=== PATIENT | female | born 1940 | race Caucasian/White ===

== ENCOUNTER → 2017-05-11 | Outpatient (CLI) | payer MEDICARE ==
[~2017-05-11] MED LIST: B12,B-12,B 12500 MC1 PO; BACTRIM DS 8001 TAB PO; CIPRO500 MG PO; CIPROFLOXACIN500 MG PO; DILANTIN100 MG PO; FLAGYL500 MG PO; KEFLEX500 M1 PO; LEVOTHYROXIN0.025 MG PO; LIDEX 0.05% CRE15 GM T; LOMOTIL 0.025 M1 TAB PO; LOPRESSOR25 MG PO; MACROBID100 M1 PO; MACRODANTIN100 MG PO; OSCAL ULTRA 6001 TA1 PO; OSTERA TABLET1 EACH PO; PREDNISONE20 M1 PO; PRESERVISION1 SGL PO; PRINIVIL5 M1 PO; PYRIDIUM200 MG PO; SYNTHROID0.025 MG PO; TOPROL XL25 MG PO; TRILIPIX45 M1 PO; VIBRAMYCIN100 MG PO; VITAMIN D32000 I1 PO; VITAMIN D3400 UNIT PO; ZESTRIL,PRINIVIL5 MG PO; ZOFRAN ODT4 MG SL; ZOVIRAX800 MG PO
== END | disposition home or self-care (01) ==
LOC: MAMMO 04-08 13:30
DX: C50.411 Malignant neoplasm of upper-outer quadrant of right female breast (principal)

== ENCOUNTER → 2017-06-01 | Day surgery (SDC) | payer MEDICARE ==
[2017-06-01 10:32] LABS: PROTHROMBIN TIME 10.4 SECONDS (9.0-12.4)
== END | disposition home or self-care (01) ==
LOC: SDC 05-21 11:00
PROVIDERS: Surgery
DX: D05.01 Lobular carcinoma in situ of right breast (principal)

== ENCOUNTER → 2017-09-16 | Outpatient (CLI) | payer MEDICARE | END | disposition home or self-care (01) | LOC: NM 10:00 | DX: C50.411 Malignant neoplasm of upper-outer quadrant of right female breast (principal) ==

== ENCOUNTER → 2017-09-17 | Outpatient (CLI) | payer MEDICARE ==
[2017-09-17 10:47] LABS: CREATININE 1.05 mg/dL (0.55-1.02)
== END | disposition home or self-care (01) ==
LOC: CT 09-04 09:00
PROVIDERS: Radiology Diagnostic Radiology
DX: C50.411 Malignant neoplasm of upper-outer quadrant of right female breast (principal); I10 Essential (primary) hypertension; K57.30 Diverticulosis of large intestine without perforation or abscess without bleeding; K44.9 Diaphragmatic hernia without obstruction or gangrene; K76.89 Other specified diseases of liver; Z90.49 Acquired absence of other specified parts of digestive tract; Z90.710 Acquired absence of both cervix and uterus; Z98.890 Other specified postprocedural states

== ENCOUNTER → 2017-10-30 | Outpatient (CLI) | payer MEDICARE ==
--- NOTE | ~2017-10-30 | EKG ---
[place], [place] ELECTROCARDIOGRAM REPORT NAME: DELPHINE PETTIT UNIT #: [id number] ROOM: DOCTOR: AUGUSTO ESTEBAN,KEYSHAWN BIRTHDATE: [birth year] DOS: 10/30/2017 TIME: 1137 hours. IMPRESSION: 1. Sinus rhythm. 2. Left anterior fascicular block. 3. Baseline artifact. 4. Normal QT interval. KEYSHAWN CASAS MD CM:EKGRPT:ELECTROCARDIOGRAM REPORT [id number] KEYSHAWN CASAS MD
[2017-10-30 11:43] LABS: BILIRUBIN NEGATIVE (NEGATIVE); BLOOD 3+ (NEGATIVE); CLARITY CLOUDY (CLEAR); COLOR YELLOW (YELLOW); GLUCOSE NEGATIVE (NEGATIVE); KETONE NEGATIVE (NEGATIVE); LEUKO ESTERASE 3+ (NEGATIVE); NITRITE NEGATIVE (NEGATIVE); PH 5.5 (5.0-9.0); SPECIFIC GRAVITY <= 1.005 (1.005-1.030); UROBILINOGEN 0.2 E.U./dl (0.2-1.0)
[2017-10-30 11:52] LABS: RBC TNTC rbc/hpf (0-2); WBC TNTC wbc/hpf (0-5)
[2017-10-30 12:03] LABS: BASO # 0.1 10*3/uL (0.0-0.1); BASO % 0.6 % (0.0-1.0); EOS # 0.1 10*3/uL (0.0-0.4); EOS % 1.5 % (1.0-4.0); HEMATOCRIT 35.3 % (37.0-47.0); HEMOGLOBIN 11.7 g/dl (12.0-16.0); LYMPH # 2.5 10*3/uL (1.3-4.4); LYMPH % 28.4 % (27.0-41.0); MEAN CELL VOLUME 89.6 fl (81.0-99.0); MEAN CORPUSCULAR HGB 29.7 pg (27.0-31.0); MEAN CORPUSCULAR HGB CONC 33.1 g/dl (33.0-37.0); MEAN PLATELET VOLUME 9.4 fl (9.6-12.3); MONO # 0.9 10*3/uL (0.1-1.0); MONO % 10.3 % (3.0-9.0); NEUT # 5.1 10*3/uL (2.3-7.9); NEUT % 58.9 % (47.0-73.0); PLATELET COUNT AUTOMATED 298 10*3/uL (130-400); RED BLOOD COUNT 3.94 10*6/uL (4.10-5.10); WHITE BLOOD COUNT 8.7 10*3/uL (4.8-10.8)
[2017-10-30 12:16] LABS: ALBUMIN 3.4 gm/dl (3.1-4.5); ALKALINE PHOSPHATASE 127 U/L (45-117); BILIRUBIN, DIRECT 0.1 mg/dL (0.0-0.2); BUN 23 mg/dl (7-24); CHLORIDE 107 mmol/L (98-107); POTASSIUM 4.1 mmol/L (3.5-5.1); SGOT/AST 15 IU/L (3-35); SGPT/ALT 18 U/L (12-78); SODIUM 141 mmol/L (136-145)
[2017-10-30 12:22] LABS: ACT PARTIAL THROMBO TIME 24.7 SECONDS (20.8-31.5)
[2017-10-30 12:25] LABS: PHENYTOIN (DILANTIN) 22.5 ug/ml (10-20)
== END ==
LOC: LAB 10:12
PROVIDERS: Surgery
DX: Z01.818 Encounter for other preprocedural examination (principal); C50.911 Malignant neoplasm of unspecified site of right female breast; R56.9 Unspecified convulsions; M79.609 Pain in unspecified limb

== ENCOUNTER → 2017-11-03 | Outpatient (CLI) | payer MEDICARE ==
[2017-11-03 14:45] LABS: BILIRUBIN NEGATIVE (NEGATIVE); BLOOD 3+ (NEGATIVE); CLARITY SL CLOUDY (CLEAR); COLOR YELLOW (YELLOW); GLUCOSE NEGATIVE (NEGATIVE); KETONE NEGATIVE (NEGATIVE); LEUKO ESTERASE 1+ (NEGATIVE); NITRITE NEGATIVE (NEGATIVE); PH 5.5 (5.0-9.0); UROBILINOGEN 0.2 E.U./dl (0.2-1.0)
[2017-11-03 15:06] LABS: BACTERIA TRACE; RBC 51-100 rbc/hpf (0-2)
[2017-11-03 15:07] LABS: WBC 31-40 wbc/hpf (0-5)
== END | disposition home or self-care (01) ==
LOC: LAB 14:18
PROVIDERS: Surgery
DX: N39.0 Urinary tract infection, site not specified (principal)

== ENCOUNTER → 2017-11-10 | Outpatient (CLI) | payer MEDICARE ==
[2017-11-10 14:21] LABS: BILIRUBIN NEGATIVE (NEGATIVE); BLOOD 3+ (NEGATIVE); CLARITY CLOUDY (CLEAR); COLOR YELLOW (YELLOW); GLUCOSE NEGATIVE (NEGATIVE); KETONE NEGATIVE (NEGATIVE); LEUKO ESTERASE 1+ (NEGATIVE); NITRITE NEGATIVE (NEGATIVE); UROBILINOGEN 0.2 E.U./dl (0.2-1.0)
[2017-11-10 14:35] LABS: BACTERIA 2+; EPITHELIAL CELLS 25-30; RBC TNTC rbc/hpf (0-2); WBC 31-40 wbc/hpf (0-5)
== END | disposition home or self-care (01) ==
LOC: LAB 13:49
PROVIDERS: Surgery
DX: N39.0 Urinary tract infection, site not specified (principal)

== ENCOUNTER 2017-11-12 01:28 | Inpatient (IN) | payer MEDICARE ==
[2017-10-30 10:28] VITALS: BP 137/67
[2017-11-07 12:15] VITALS: BP 137/91
[~2017-11-12] VITALS: Ht 162.5 cm; Wt 73.5 kg
[2017-11-12] VITALS (10 sets, daily range): BP systolic 112–156; BP diastolic 53–91
--- NOTE | ~2017-11-12 | O ---
[place], [place] OPERATIVE NOTE [facility]: [facility]IT [id number] UNIT #: [id number] ROOM: 4006 DOCTOR: EY RUSSO MD BIRTHDATE: [birth year] DOS: 11/12/2017 PREOPERATIVE DIAGNOSIS: Recurrent right breast cancer. POSTOPERATIVE DIAGNOSIS: Recurrent right breast cancer. PROCEDURE: Right modified radical mastectomy. SURGEON: Ye Russo MD SUPERVISOR OF GUIDANCE AND TESTING: ERLIN. ANESTHESIA: GET. INDICATIONS: This is a 77-year-old lady who has got a history of previous breast cancer on the right breast, comes in with a diagnosis of lobular carcinoma of the right breast and who is here for the above-mentioned procedure. The procedure and its complications were explained to the patient in detail preoperatively. Complications that were discussed included but were not limited to bleeding, infection, prolonged postoperative pain and damage lying vital structures. She agreed to proceed. DESCRIPTION OF PROCEDURE: After identifying the patient, the patient was brought to the operating suite and laid in the supine position. After induction of general anesthesia, a shoulder roll was placed under the right shoulder and the parts were then painted and draped in the usual sterile fashion. Timeout procedure was called. An incision in the form of an ellipse was marked encompassing the nipple areolar complex as well as the previous biopsy site on the right breast. The incision was made. The superior part of the ellipse was incised first and a flap was raised up to the right clavicle. The inferior part of the skin ellipse was then incised and the flap was raised up to the inframammary fold from the midline. The breast tissue was then removed from the underlying muscle and fascia with the help of electrocautery. The clavipectoral fascia was incised and the axillary contents were then accessed. With extreme care, the fibro-fatty areolar and lymphatic tissue was dissected away until adequate margins of the axillary dissection were obtained. This was confirmed by reaching the superior limit of the axillary dissection by identifying the axillary vein and the thoracodorsal vessels and nerve. Laterally, it was excised up to subscapularis muscle. After adequate dissection was performed, the breast and the axillary tissue was excised in one specimen and appropriately oriented and sent for histopathological diagnosis. Hemostasis was achieved with the help of electrocautery. Prior to removing the specimen, the long thoracic nerve of Perry was also identified and safeguarded. Copious amounts of saline was used for irrigation and hemostasis was achieved with the help of electrocautery and with suture ligature. After hemostasis was confirmed, two 15-[place] round Robert-Diaz drains were placed, one superiorly and one inferiorly and were fixed to the overlying skin with the help of 3-0 nylon in an interrupted fashion. The skin edges were freshened and trimmed so that there was adequate apposition of the edges of the wound. The subcutaneous tissue was then approximated with the help of 3-0 Vicryl in a running fashion and the skin [place], [place] OPERATIVE NOTE NAME: DELPHINE PETTIT UNIT #: [id number] ROOM: 4006 DOCTOR: YE RUSSO MD BIRTHDATE: [birth year] edges after infiltrating with 1% plain lidocaine were approximated with the help of 4-0 Vicryl in a subcuticular running fashion. A dressing was placed and a protective bra was placed on top of the dressing. The patient tolerated the procedure well and was extubated uneventfully and taken to the recovery room in a stable fashion. Blood loss was about [address] Ye Russo, the attending surgeon, was present throughout the operating case. There were no complications. Ye Russo MD CM:OPRECORD:OPERATIVE NOTE 1143 [id number] YE RUSSO MD 11/12/17 1307 interface
== END 2017-11-12 23:05 | disposition short-term general hospital (02) | DRG 582 ==
LOC: SDC 01:28 → 4NE 12:25 → ICCU 19:25
PROC: 0HTT0ZZ Resection of Right Breast, Open Approach (ICD-10-PCS; principal; 2017-11-12)
DX: C50.911 Malignant neoplasm of unspecified site of right female breast (principal); F05 Delirium due to known physiological condition; D64.9 Anemia, unspecified; K57.92 Diverticulitis of intestine, part unspecified, without perforation or abscess without bleeding; E03.9 Hypothyroidism, unspecified; L25.9 Unspecified contact dermatitis, unspecified cause; E78.5 Hyperlipidemia, unspecified; G40.909 Epilepsy, unspecified, not intractable, without status epilepticus; Z79.899 Other long term (current) drug therapy

== ENCOUNTER → 2018-07-22 | Outpatient (CLI) | payer MEDICARE | END | disposition home or self-care (01) | LOC: MAMMO 08:28 | DX: C50.911 Malignant neoplasm of unspecified site of right female breast (principal); Z90.11 Acquired absence of right breast and nipple ==

== ENCOUNTER → 2018-10-08 | Outpatient (CLI) | payer MEDICARE ==
[~2018-10-08] MED LIST changes: +LISINOPRIL10 M1 PO
[2018-10-08 11:27] LABS: BASO # 0.1 10*3/uL (0.0-0.1); BASO % 0.8 % (0.0-1.0); EOS # 0.4 10*3/uL (0.0-0.4); EOS % 3.4 % (1.0-4.0); HEMATOCRIT 41.1 % (37.0-47.0); HEMOGLOBIN 13.1 g/dl (12.0-16.0); LYMPH # 2.1 10*3/uL (1.3-4.4); LYMPH % 20.5 % (27.0-41.0); MEAN CELL VOLUME 89.7 fl (81.0-99.0); MEAN CORPUSCULAR HGB 28.6 pg (27.0-31.0); MEAN CORPUSCULAR HGB CONC 31.9 g/dl (33.0-37.0); MONO % 9.6 % (3.0-9.0); NEUT # 6.7 10*3/uL (2.3-7.9); NEUT % 65.4 % (47.0-73.0); PLATELET COUNT AUTOMATED 320 10*3/uL (130-400); RED BLOOD COUNT 4.58 10*6/uL (4.10-5.10); RED CELL DISTRI WIDTH 12.6 % (0-14.5); WHITE BLOOD COUNT 10.2 10*3/uL (4.8-10.8)
[2018-10-08 11:35] LABS: ACT PARTIAL THROMBO TIME 23.9 SECONDS (20.8-31.5)
[2018-10-08 11:53] LABS: BUN 15 mg/dl (7-24); CHLORIDE 109 mmol/L (98-107); CREATININE 1.02 mg/dL (0.55-1.02); POTASSIUM 3.7 mmol/L (3.5-5.1); SODIUM 143 mmol/L (136-145)
== END | disposition home or self-care (01) ==
LOC: LAB 10:21
PROVIDERS: Surgery
DX: R22.31 Localized swelling, mass and lump, right upper limb (principal)

== ENCOUNTER → 2018-10-20 | Outpatient (CLI) | payer MEDICARE ==
[2018-10-20 11:56] LABS: BASO # 0.1 10*3/uL (0.0-0.1); BASO % 0.8 % (0.0-1.0); EOS # 0.3 10*3/uL (0.0-0.4); EOS % 2.5 % (1.0-4.0); HEMOGLOBIN 13.2 g/dl (12.0-16.0); LYMPH # 2.4 10*3/uL (1.3-4.4); LYMPH % 23.2 % (27.0-41.0); MEAN CELL VOLUME 90.7 fl (81.0-99.0); MEAN CORPUSCULAR HGB 29.2 pg (27.0-31.0); MEAN CORPUSCULAR HGB CONC 32.2 g/dl (33.0-37.0); MEAN PLATELET VOLUME 9.7 fl (9.6-12.3); MONO % 9.7 % (3.0-9.0); NEUT # 6.5 10*3/uL (2.3-7.9); NEUT % 63.4 % (47.0-73.0); PLATELET COUNT AUTOMATED 319 10*3/uL (130-400); RED BLOOD COUNT 4.52 10*6/uL (4.10-5.10); RED CELL DISTRI WIDTH 12.8 % (0-14.5); WHITE BLOOD COUNT 10.3 10*3/uL (4.8-10.8)
[2018-10-20 12:30] LABS: BUN 20 mg/dl (7-24); CHLORIDE 107 mmol/L (98-107); CREATININE 1.03 mg/dL (0.55-1.02); POTASSIUM 3.9 mmol/L (3.5-5.1); SODIUM 139 mmol/L (136-145)
[2018-10-20 12:32] LABS: ACT PARTIAL THROMBO TIME 24.2 SECONDS (20.8-31.5)
== END ==
LOC: CANPRESDC → SDC 10-08 10:15 → LAB 08:00 → SDC 10-22 10:15 → EDSTATUS 10-22 10:15
PROVIDERS: Surgery
DX: R22.2 Localized swelling, mass and lump, trunk (principal); Z53.8 Procedure and treatment not carried out for other reasons

== ENCOUNTER → 2018-11-11 | Day surgery (SDC) | payer MEDICARE ==
[~2018-11-11] VITALS: Ht 167.6 cm; Wt 77.6 kg
== END | disposition home or self-care (01) ==
LOC: SDC 10-18 10:15
DX: R22.9 Localized swelling, mass and lump, unspecified (principal)

== ENCOUNTER 2019-12-20 13:41 | Inpatient (IN) | payer MEDICARE ==
[~2019-12-20] VITALS: Ht 167.6 cm; Wt 78.7 kg
[2019-12-20 13:54] VITALS: BP 148/67
[2019-12-20 14:17] VITALS: BP 126/58
[2019-12-20 15:01] LABS: BILIRUBIN NEGATIVE (NEGATIVE); BLOOD 3+ (NEGATIVE); CLARITY CLOUDY (CLEAR); COLOR YELLOW (YELLOW); GLUCOSE NEGATIVE (NEGATIVE); KETONE NEGATIVE (NEGATIVE); LEUKO ESTERASE 3+ (NEGATIVE); NITRITE NEGATIVE (NEGATIVE); SPECIFIC GRAVITY 1.015 (1.005-1.030); UROBILINOGEN 0.2 E.U./dl (0.2-1.0)
[2019-12-20 15:03] LABS: BACTERIA 4+; RBC 51-100 rbc/hpf (0-2); WBC 41-50 wbc/hpf (0-5)
[2019-12-20 15:30] LABS: HEMOGLOBIN 12.4 g/dl (12.0-16.0); MEAN CORPUSCULAR HGB CONC 32.6 g/dl (33.0-37.0); MEAN PLATELET VOLUME 9.2 fl (9.6-12.3); PLATELET COUNT AUTOMATED 265 10*3/uL (130-400); RED BLOOD COUNT 4.13 10*6/uL (4.10-5.10); RED CELL DISTRI WIDTH 12.6 % (0-14.5)
[2019-12-20 15:44] LABS: ALBUMIN 3.4 gm/dl (3.1-4.5); CREATININE 1.21 mg/dL (0.55-1.02); POTASSIUM 3.3 mmol/L (3.5-5.1); TOTAL PROTEIN 7.9 gm/dL (6.4-8.2)
[2019-12-20 16:00] VITALS: BP 113/57
[2019-12-20 16:02] LABS: BASOPHILS 1 % (0-1); TOTAL CELLS COUNTED 100 #CELLS
[2019-12-20 16:03] LABS: PLATELET SUFFICIENCY NORMAL (NORMAL)
[2019-12-20 18:05] VITALS: BP 108/57
--- NOTE | 2019-12-20 18:05 | NUR ---
Time: 1804 A 79 year old FEMALE admitted to 4E under services of DANG TERAN DO. Pt. arrived via stretcher from ER. Chief complaint: CONFUSION EARLIER TODAY. SHAYE LEAHY
[2019-12-20 18:15] VITALS: BP 108/57
[2019-12-20] MEDS ORDERED: VITAMIN D32000 UNI1 PO (18:40)
[2019-12-20] MEDS ORDERED: FENOFIBRATE160 MG PO (18:41)
[2019-12-20 20:00] VITALS: BP 113/57
--- NOTE | 2019-12-20 21:04 | NUR ---
NOTIFIED DR FABIAN OF COMPLETED MED REC. ORDERS RECIEVED TO CONTINUE DILANTIN.
[2019-12-21] VITALS: BP 152/71
--- NOTE | 2019-12-21 00:12 | NUR ---
TYLENOL GIVEN PER PATIENT REQUEST FOR TEMP OF 102.3. WILL ASSESS EFFECTIVENESS.
--- NOTE | 2019-12-21 01:30 | NUR ---
TYLENOL EFFECTIVE. PATIENTS TEMP NOW 99.9 F ORAL.
--- NOTE | 2019-12-21 04:11 | NUR ---
NOTIFIED DR FABIAN OF POSITIVE BLOOD CULTURE RESULTS. ORDERS RECIEVED TO REPEAT BLOOD CULTURES. ORDER PUT IN.
--- NOTE | 2019-12-21 06:17 | NUR ---
PATIENT SLEPT THROUGH NIGHT WITH NO COMPLAINTS. CALL LIGHT WITHIN REACH. WILL CONTINUE TO MONITOR.
[2019-12-21 07:06] LABS: BASO % 0.2 % (0.0-1.0); EOS % 0.2 % (1.0-4.0); HEMATOCRIT 35.6 % (37.0-47.0); HEMOGLOBIN 11.3 g/dl (12.0-16.0); LYMPH # 0.7 10*3/uL (1.3-4.4); LYMPH % 5.5 % (27.0-41.0); MEAN CELL VOLUME 92.7 fl (81.0-99.0); MEAN CORPUSCULAR HGB 29.4 pg (27.0-31.0); MEAN CORPUSCULAR HGB CONC 31.7 g/dl (33.0-37.0); MONO # 0.8 10*3/uL (0.1-1.0); MONO % 6.8 % (3.0-9.0); NEUT # 10.5 10*3/uL (2.3-7.9); NEUT % 86.6 % (47.0-73.0); PLATELET COUNT AUTOMATED 261 10*3/uL (130-400); RED BLOOD COUNT 3.84 10*6/uL (4.10-5.10); RED CELL DISTRI WIDTH 12.9 % (0-14.5); WHITE BLOOD COUNT 12.1 10*3/uL (4.8-10.8)
[2019-12-21 07:26] LABS: POTASSIUM 3.4 mmol/L (3.5-5.1)
[2019-12-21 07:45] LABS: ALBUMIN 2.7 gm/dl (3.1-4.5); CREATININE 1.24 mg/dL (0.55-1.02); FREE T4 1.44 ng/dl (0.76-1.46); PHOSPHOROUS 2.4 mg/dL (2.5-4.9); THYROID STIM HORMONE (HS) 0.038 uIU/ml (0.358-4.75); TOTAL PROTEIN 6.7 gm/dL (6.4-8.2)
[2019-12-21 08:00] VITALS: BP 150/68
--- NOTE | 2019-12-21 08:34 | NUR ---
PT RESTING IN BED/ NO DISTRESS NOTED. WILL MONITOR
[2019-12-21 08:57] LABS: VITAMIN D, 25-HYDROXY 22.7 ng/mL (30-100)
--- NOTE | 2019-12-21 09:00 | NUR ---
Belt Back Operator in to talk to patient. Patient states lives at home with alone. There are 13 steps in the home. Physician: promise jaimes [facility]: none Patient's level of ADLs: MINIMAL ASSIST Patient has working utilities: all working DME: non Follow-up physician's appointment after d/c: will be made by hospitalist nurse director upon discharge Does patient want to access PORTAL?: no Discharge plan discussed with patient, she states she lives at home alone, she normally gets around ok at home, she states she does not have any VNA at home and her daughter lives close and helps her on a daily basis. discussed with her a [facility] term [place] [facility] prior to returning home, patient didn't know if she wanted to do this or not, also educated her on VNA, she stated she would rather go home with [facility] if she is able, case management will follow. JULIO NORTON
--- NOTE | 2019-12-21 11:30 | NUR ---
PHYSICAL THERAPY Roro completed moderate level of complexity 58194 recomend SNF at discharge PT to work on tranfers,amb,balance/safety and strengthening. Anny Israel PT
[2019-12-21 12:00] VITALS: BP 142/60
--- NOTE | 2019-12-21 12:59 | NUR ---
Occupational therapy orders received and OT evaluation completed in full on floor four. Patient precautions include FALL RISK, H/O RIGHT BREAST CA S/P LUMPECTOMY, WW, IV, CATHETER, decreased standing balance. Per OT evimani, OT recommends SNF. If refused, home with SN, OT, and PT with / supervision assist. [place] complexity [place] mod, 56070. Thank you. Bruna Vargas, OTR/L
[2019-12-21 16:00] VITALS: BP 136/68
--- NOTE | 2019-12-21 17:32 | NUR ---
HAYES CATHETER REMOVED ORDERED
--- NOTE | 2019-12-21 17:38 | NUR ---
PT SITTING UP IN CHAIR. NO DISTRESS NOTED. FAMILY AT BEDSIDE WILL MONITOR
[2019-12-21 20:00] VITALS: BP 120/51
[2019-12-22] VITALS: BP 135/68
--- NOTE | 2019-12-22 01:03 | NUR ---
Patient resting quietly with no c/o discomfort. Respirations easy and regular. Vital signs stable. No overt distress. BIPIN KEN
[2019-12-22 06:45] LABS: HEMOGLOBIN 10.3 g/dl (12.0-16.0); MEAN CELL VOLUME 92.8 fl (81.0-99.0); MEAN CORPUSCULAR HGB 29.9 pg (27.0-31.0); MEAN CORPUSCULAR HGB CONC 32.2 g/dl (33.0-37.0); MEAN PLATELET VOLUME 9.7 fl (9.6-12.3); PLATELET COUNT AUTOMATED 205 10*3/uL (130-400); RED BLOOD COUNT 3.45 10*6/uL (4.10-5.10); WHITE BLOOD COUNT 6.6 10*3/uL (4.8-10.8)
[2019-12-22 07:00] LABS: BUN 17 mg/dl (7-24); CHLORIDE 115 mmol/L (98-107); PHOSPHOROUS 1.8 mg/dL (2.5-4.9); POTASSIUM 3.7 mmol/L (3.5-5.1); SODIUM 142 mmol/L (136-145)
[2019-12-22 07:08] LABS: PLATELET SUFFICIENCY NORMAL (NORMAL); TOTAL CELLS COUNTED 100 #CELLS
[2019-12-22 08:00] VITALS: BP 148/69
--- NOTE | 2019-12-22 08:42 | NUR ---
PT RESTING IN BED. NO DISTRESS NOTED. WILL MONITOR
--- NOTE | 2019-12-22 08:50 | NUR ---
PHYSICAL THERAPY Patient seen this am 1:1 for therapy visit and was supine in bed upon therapist arrival. Paient identified by name / and was very pleasant, reporting no new c/o's. OT retail assistant was also present for observation only this session as patient transfers supine to sit EOB CGA x 1. Patient completed sit to stand transfer CGA and ambulates without AD, FIELD MAP TECHNICIAN/CGA, 50'x 2, demonstrating bouts of impulsive, unsteady gait pattern due to increased gait velocity / forward head posture. Patient received v/c to slow down with increased upright posture and showed slight improvement in smoother gayatri. Patient able to walk backwards 5'x 1, very cautious step sequence and completed eyes open / closed with LOB x 1 x several trials. Patient returned to bedside chair with mild fatigue and remained with call light, tray table, telephone and body alarm for safety. Will continue per POC as tolerated, total treatment time 17 minutes. Juan Kerr, RESPIRATORY CARE TECHNICIAN
--- NOTE | 2019-12-22 09:00 | NUR ---
case management visits with patient, patient was ambulating in [place] with physical therapy, discussed with her a discharge plan and she stated she would return home when she was medically stable, again discussed with her VNA and she was receptive to [facility]
--- NOTE | 2019-12-22 09:25 | NUR ---
OT NOTE Pt was seen this A.M. 1:1 for 15 minute OT session. Upon arrival pt was supine in bed. Pt identified by name and and had no complaints at this time. Pt transferred supine to sit EOB with CGA and use of bed rail for UE support. While sitting EOB pt donned B socks with SBA. Sit to stand completed from bed level with CGA followed by functional mobility into the bathroom with CGA COMPLEX DIRECTOR. Throughout pt had bouts of unsteady stance and required constant verbal prompts for slowing down due to being impulsive and increasing risk of falls. There she transferred on/off standard commode with CGA and use of grab bar for UE support. Clothing management completed with CGA and toilet hygiene completed with distant supervision while seated. Pt then stood sink side while washing her hands with CGA for safety. Challenged pt's static standing tolerance needed for increased I in self care tasks and functional transfers, pt was able to tolerate aprox 5 minutes before sitting due to fatigue. Challenged pt's dynamic standing balance needed for increased I and enhanced safety, while weight shifting, crossing midline, and reaching over all planes pt was able to maintain F- standing balance throghout. Pt was left sitting upright in the recliner with call light in hand, tray table in place, and body alarm activated for safety. Continue with rec D/C plan to SNF. MARY JANE Sampson
[2019-12-22 12:00] VITALS: BP 122/74
--- NOTE | 2019-12-22 13:30 | NUR ---
case management faxed home health order to [facility] for when patient is medically stable for discharge
[2019-12-22 16:00] VITALS: BP 117/60
--- NOTE | 2019-12-22 19:06 | NUR ---
family with patient. patient alert sitting up in bed visiting. Did not eat any dinner per family.
[2019-12-22 20:00] VITALS: BP 152/73
--- NOTE | 2019-12-22 21:44 | NUR ---
UP TO BATHROOM WITH ASSISTANCE AND BACK TO BED.
[2019-12-23] VITALS: BP 147/69
--- NOTE | 2019-12-23 01:19 | NUR ---
24 HR chart check completed.
--- NOTE | 2019-12-23 04:09 | NUR ---
UP TO BATHROOM WITH 1 ASSIST AND BACK TO BED. VOIDED ONLY.
[2019-12-23 06:32] LABS: BASO % 0.5 % (0.0-1.0); EOS # 0.1 10*3/uL (0.0-0.4); EOS % 2.2 % (1.0-4.0); HEMOGLOBIN 10.6 g/dl (12.0-16.0); LYMPH # 1.6 10*3/uL (1.3-4.4); LYMPH % 24.4 % (27.0-41.0); MEAN CELL VOLUME 91.7 fl (81.0-99.0); MEAN CORPUSCULAR HGB 29.4 pg (27.0-31.0); MEAN CORPUSCULAR HGB CONC 32.1 g/dl (33.0-37.0); MEAN PLATELET VOLUME 9.9 fl (9.6-12.3); MONO # 1.1 10*3/uL (0.1-1.0); MONO % 16.5 % (3.0-9.0); NEUT # 3.6 10*3/uL (2.3-7.9); NEUT % 55.9 % (47.0-73.0); PLATELET COUNT AUTOMATED 230 10*3/uL (130-400); RED CELL DISTRI WIDTH 12.7 % (0-14.5); WHITE BLOOD COUNT 6.4 10*3/uL (4.8-10.8)
--- NOTE | 2019-12-23 06:56 | NUR ---
up to bathroom with assistance x1 and voided and back to bed. Patient has been up to bathroom to void 10 times for 12hr shift. pt. did well moving.
[2019-12-23 07:24] LABS: CHLORIDE 112 mmol/L (98-107); POTASSIUM 3.6 mmol/L (3.5-5.1); SODIUM 141 mmol/L (136-145)
[2019-12-23 07:27] LABS: BUN 19 mg/dl (7-24); CREATININE 1.01 mg/dL (0.55-1.02)
--- NOTE | 2019-12-23 07:41 | NUR ---
PHYSICAL THERAPY CO-SIGN I approve of the Physical Therapy notes written above. Anny Israel PT
[2019-12-23 08:00] VITALS: BP 132/74
--- NOTE | 2019-12-23 09:58 | NUR ---
OT NOTE Pt was seen this A.M. 1:1 for 15 minute OT session. Upon arrival pt was sitting upright in the recliner. Pt identified by name and and had no complaints at this time. Pt completed sit to stand from chair level with CGA followed by functional mobility into the bathroom with CGA WELLNESS COACH, pt had two LOB throughout once while turning and once due to impulsive behavior requiring Dinorah to correct. Pt transferred on/off standard commode with CGA and use of grab bar for UE support. Clothing management completed with CGA and toilet hygiene conpleted with distant supervision while seated. Pt then stood sink side while washing her hands with CGA. Challenged pt's dynamic standing balance while weight shifting, crossing midline, and reaching over all planes. Pt was able to maintain F/F+ standing balance throughout. Pt was left sitting upright in the recliner with call light in hand, tray table in place, and body alarm activated for safety. Continue with rec D/C plan to SNF. MARY JANE Sampson
[2019-12-23] MEDS ORDERED: AMINOPHYLLIN200 MG PO (09:59)
[2019-12-23 12:00] VITALS: BP 126/63
--- NOTE | 2019-12-23 15:17 | NUR ---
Discharge instructions reviewed with patient/family. Patient receptive and verbalizes understanding. Follow-up care arranged. Written instructions given to patient/family. RODRIGO CHANG
--- NOTE | 2019-12-23 15:46 | NUR ---
OCCUPATIONAL THERAPY CO-SIGN I approve of the Occupational Therapy notes written above. FELIPE DANIELS OTR/Tashia
== END 2019-12-23 15:17 | disposition home health service (06) | DRG 871 ==
LOC: ED 13:41 → 4E 16:50 → EDHOLD 16:50 → 4E 17:48
PROVIDERS: Emergency Medicine; Internal Medicine; ADMIT Internal Medicine
DX: A41.9 Sepsis, unspecified organism (principal); J18.9 Pneumonia, unspecified organism; N39.0 Urinary tract infection, site not specified; E87.8 Other disorders of electrolyte and fluid balance, not elsewhere classified; N18.3 Chronic kidney disease, stage 3 (moderate); E87.6 Hypokalemia; R73.9 Hyperglycemia, unspecified; G40.909 Epilepsy, unspecified, not intractable, without status epilepticus; E03.9 Hypothyroidism, unspecified; E53.8 Deficiency of other specified B group vitamins; E55.9 Vitamin D deficiency, unspecified; B96.20 Unspecified Escherichia coli [E. coli] as the cause of diseases classified elsewhere; E78.5 Hyperlipidemia, unspecified; Z85.3 Personal history of malignant neoplasm of breast; Z87.440 Personal history of urinary (tract) infections; Z90.710 Acquired absence of both cervix and uterus; Z90.49 Acquired absence of other specified parts of digestive tract; Z90.11 Acquired absence of right breast and nipple; Z80.8 Family history of malignant neoplasm of other organs or systems; Z79.899 Other long term (current) drug therapy

== ENCOUNTER 2020-06-17 22:34 | Emergency (ER) | payer MEDICARE, MEDICAID ==
[~2020-06-17] VITALS: Ht 170.1 cm; Wt 78.0 kg
[~2020-06-17 22:34] MED LIST changes: +AMINOPHYLLIN200 MG PO; +FENOFIBRATE160 MG PO; +VITAMIN D32000 UNI1 PO
[2020-06-18 00:11] LABS: BASO # 0.1 10*3/uL (0.0-0.1); BASO % 0.6 % (0.0-1.0); EOS # 0.5 10*3/uL (0.0-0.4); EOS % 4.4 % (1.0-4.0); HEMATOCRIT 39.7 % (37.0-47.0); LYMPH # 2.9 10*3/uL (1.3-4.4); LYMPH % 25.4 % (27.0-41.0); MEAN CELL VOLUME 93.6 fl (81.0-99.0); MEAN CORPUSCULAR HGB 29.5 pg (27.0-31.0); MEAN CORPUSCULAR HGB CONC 31.5 g/dl (33.0-37.0); MEAN PLATELET VOLUME 9.3 fl (9.6-12.3); MONO # 1.1 10*3/uL (0.1-1.0); MONO % 9.7 % (3.0-9.0); NEUT # 6.8 10*3/uL (2.3-7.9); NEUT % 59.2 % (47.0-73.0); PLATELET COUNT AUTOMATED 358 10*3/uL (130-400); RED BLOOD COUNT 4.24 10*6/uL (4.10-5.10); RED CELL DISTRI WIDTH 12.6 % (0-14.5); WHITE BLOOD COUNT 11.5 10*3/uL (4.8-10.8)
[2020-06-18 00:28] LABS: ALBUMIN 3.5 gm/dl (3.1-4.5); CREATININE 1.25 mg/dL (0.55-1.02); POTASSIUM 3.8 mmol/L (3.5-5.1); TOTAL PROTEIN 8.5 gm/dL (6.4-8.2)
[2020-06-18 01:13] VITALS: BP 154/72
[2020-06-18] MEDS ORDERED: DOXYCYCLINE100 M3 PO (01:17)
== END 2020-06-18 01:30 | disposition home or self-care (01) ==
LOC: ED 22:34
PROVIDERS: Nurse Practitioner Family
DX: L02.411 Cutaneous abscess of right axilla (principal); Z79.899 Other long term (current) drug therapy

== ENCOUNTER → 2020-09-10 | Outpatient (CLI) | payer MEDICARE ==
[~2020-09-10] MED LIST changes: +AVPAK EXTENDED100 M1 PO; +CEFTRIAXON2 GM/50 ML IV; +DOXYCYCLINE100 M3 PO
[2020-09-10 14:17] LABS: BASO # 0.1 10*3/uL (0.0-0.1); BASO % 0.5 % (0.0-1.0); EOS # 0.4 10*3/uL (0.0-0.4); EOS % 3.2 % (1.0-4.0); HEMATOCRIT 37.5 % (37.0-47.0); LYMPH # 3.7 10*3/uL (1.3-4.4); LYMPH % 28.6 % (27.0-41.0); MEAN CELL VOLUME 89.5 fl (81.0-99.0); MEAN CORPUSCULAR HGB 29.1 pg (27.0-31.0); MEAN CORPUSCULAR HGB CONC 32.5 g/dl (33.0-37.0); MEAN PLATELET VOLUME 9.7 fl (9.6-12.3); MONO # 1.1 10*3/uL (0.1-1.0); MONO % 8.4 % (3.0-9.0); NEUT # 7.7 10*3/uL (2.3-7.9); PLATELET COUNT AUTOMATED 358 10*3/uL (130-400); RED BLOOD COUNT 4.19 10*6/uL (4.10-5.10); RED CELL DISTRI WIDTH 12.7 % (0-14.5); WHITE BLOOD COUNT 13.1 10*3/uL (4.8-10.8)
[2020-09-10 14:47] LABS: ALBUMIN 3.4 gm/dl (3.1-4.5); ALKALINE PHOSPHATASE 131 U/L (45-117); BUN 13 mg/dl (7-24); CHLORIDE 109 mmol/L (98-107); CREATININE 0.89 mg/dL (0.55-1.02); POTASSIUM 3.8 mmol/L (3.5-5.1); SGOT/AST 19 IU/L (3-35); SGPT/ALT 16 U/L (12-78); SODIUM 143 mmol/L (136-145); TOTAL PROTEIN 8.5 gm/dL (6.4-8.2)
[2020-09-10 19:19] LABS: BILIRUBIN Negative (Negative); BLOOD 1+ (Negative); CLARITY Clear (Clear); COLOR Yellow (Yellow); GLUCOSE Negative (Negative); KETONE Negative (Negative); LEUKO ESTERASE 2+ (Negative); NITRITE Negative (Negative); PH 6.5 (4.5-8.0); SPECIFIC GRAVITY <= 1.005 (1.001-1.030); UROBILINOGEN 0.2 E.U./dl (0.0-1.0)
[2020-09-10 20:55] LABS: BACTERIA TRACE
== END | disposition home or self-care (01) ==
LOC: LAB 13:52 → CT 14:00
PROVIDERS: ATTEND Urology
DX: R31.9 Hematuria, unspecified (principal)

== ENCOUNTER → 2020-12-01 | Outpatient (CLI) | payer MEDICARE ==
[~2020-12-01] MED LIST changes: +PERCOCET 5-3251 EACH PO; +ZOFRAN4 MG PO
== END | disposition home or self-care (01) ==
LOC: COVID19 10:13
PROVIDERS: ATTEND Nurse Practitioner
DX: Z20.822 Contact with and (suspected) exposure to COVID-19 (principal)

== ENCOUNTER → 2020-12-06 | Day surgery (SDC) | payer MEDICARE ==
[~2020-12-06] VITALS: Ht 162.5 cm; Wt 73.0 kg
[2020-12-06 07:42] VITALS: BP 130/66
[2020-12-06 08:55] VITALS: BP 117/50
[2020-12-06 09:10] VITALS: BP 119/53
[2020-12-06 09:25] VITALS: BP 136/64
== END ==
LOC: SDC 11-27 08:00
PROVIDERS: ATTEND Surgery
DX: L02.91 Cutaneous abscess, unspecified (principal); C79.2 Secondary malignant neoplasm of skin; I12.9 Hypertensive chronic kidney disease with stage 1 through stage 4 chronic kidney disease, or unspecified chronic kidney disease; G40.909 Epilepsy, unspecified, not intractable, without status epilepticus; E11.22 Type 2 diabetes mellitus with diabetic chronic kidney disease; N18.30 Chronic kidney disease, stage 3 unspecified; E78.00 Pure hypercholesterolemia, unspecified; Z79.899 Other long term (current) drug therapy; Z85.3 Personal history of malignant neoplasm of breast; Z90.11 Acquired absence of right breast and nipple; Z90.710 Acquired absence of both cervix and uterus; Z98.890 Other specified postprocedural states

== ENCOUNTER → 2021-01-22 | Outpatient (CLI) | payer MEDICARE, MEDICAID ==
[2021-01-23 08:08] LABS: THYROID PEROXIDASE (TPO) AB 88 IU/mL (0-34)
[2021-01-23 15:07] LABS: THYROGLOBULIN ANTIBODY <1.0 IU/mL (0.0-0.9)
== END | disposition home or self-care (01) ==
LOC: CT 01-14 15:00 → LAB 13:43 → CT 14:00
PROVIDERS: Student in an Organized Health Care Education/Training Program; ATTEND Internal Medicine Hematology & Oncology
DX: E04.1 Nontoxic single thyroid nodule (principal); R22.9 Localized swelling, mass and lump, unspecified; R79.89 Other specified abnormal findings of blood chemistry; I25.10 Atherosclerotic heart disease of native coronary artery without angina pectoris; K57.90 Diverticulosis of intestine, part unspecified, without perforation or abscess without bleeding; C50.911 Malignant neoplasm of unspecified site of right female breast; Z90.49 Acquired absence of other specified parts of digestive tract

== ENCOUNTER → 2021-05-15 | Outpatient (CLI) | payer MEDICARE, MEDICAID | END | disposition home or self-care (01) | LOC: US 05-09 16:00 | PROVIDERS: ATTEND Nurse Practitioner Primary Care | DX: E04.2 Nontoxic multinodular goiter (principal); R79.89 Other specified abnormal findings of blood chemistry ==

== ENCOUNTER → 2021-05-24 | Outpatient (CLI) | payer MEDICARE, MEDICAID | END | disposition home or self-care (01) | LOC: CT 16:34 | PROVIDERS: ATTEND Internal Medicine Hematology & Oncology | DX: E04.2 Nontoxic multinodular goiter (principal); D35.02 Benign neoplasm of left adrenal gland; I25.10 Atherosclerotic heart disease of native coronary artery without angina pectoris; C50.911 Malignant neoplasm of unspecified site of right female breast; Z90.11 Acquired absence of right breast and nipple ==

== ENCOUNTER 2021-12-11 02:06 | Emergency (ER) | payer MEDICARE, MEDICAID ==
[~2021-12-11] VITALS: Wt 73.0 kg
[2021-12-11 02:20] VITALS: BP 193/104
[2021-12-11 02:37] LABS: BASO # 0.1 10*3/uL (0.0-0.1); BASO % 0.6 % (0.0-1.0); EOS # 0.6 10*3/uL (0.0-0.4); EOS % 3.8 % (1.0-4.0); HEMATOCRIT 39.8 % (37.0-47.0); LYMPH # 3.8 10*3/uL (1.3-4.4); LYMPH % 25.6 % (27.0-41.0); MEAN CELL VOLUME 91.5 fl (81.0-99.0); MEAN CORPUSCULAR HGB 30.1 pg (27.0-31.0); MEAN CORPUSCULAR HGB CONC 32.9 g/dl (33.0-37.0); MEAN PLATELET VOLUME 9.5 fl (9.6-12.3); MONO # 1.4 10*3/uL (0.1-1.0); MONO % 9.3 % (3.0-9.0); NEUT # 8.8 10*3/uL (2.3-7.9); NEUT % 60.1 % (47.0-73.0); PLATELET COUNT AUTOMATED 296 10*3/uL (130-400); RED BLOOD COUNT 4.35 10*6/uL (4.10-5.10); RED CELL DISTRI WIDTH 12.7 % (0-14.5); WHITE BLOOD COUNT 14.7 10*3/uL (4.8-10.8)
[2021-12-11 02:41] LABS: BILIRUBIN Negative (Negative); BLOOD 1+ (Negative); CLARITY Clear (Clear); COLOR Yellow (Yellow); GLUCOSE Negative (Negative); KETONE Negative (Negative); LEUKO ESTERASE 2+ (Negative); NITRITE Negative (Negative); UROBILINOGEN 0.2 E.U./dl (0.0-1.0)
[2021-12-11 02:48] LABS: RBC 16-20 rbc/hpf (0-2); WBC 31-40 wbc/hpf (0-5)
[2021-12-11 02:50] LABS: URINE AMPHETAMINES < 1000 (1000ng/ml); URINE BARBITURATES < 200 (200ng/ml); URINE BENZODIAZEPINES < 200 (200ng/ml); URINE CANNABINOIDS (THC) < 50 (50ng/ml); URINE COCAINE < 300 (300ng/ml); URINE METHADONE < 300 (300ng/ml); URINE OPIATES < 300 (300ng/ml); URINE PHENCYCLIDINE < 25 (25ng/ml)
[2021-12-11 02:55] LABS: ALBUMIN 3.4 gm/dl (3.1-4.5); CREATININE 1.12 mg/dL (0.55-1.02); POTASSIUM 4.2 mmol/L (3.5-5.1); TOTAL PROTEIN 8.2 gm/dL (6.4-8.2)
[2021-12-11] MEDS ORDERED: CIPRO500 MG PO (03:13)
== END 2021-12-11 03:56 | disposition home or self-care (01) ==
LOC: ED 02:06
PROVIDERS: Internal Medicine
DX: N39.0 Urinary tract infection, site not specified (principal); D72.829 Elevated white blood cell count, unspecified; I12.9 Hypertensive chronic kidney disease with stage 1 through stage 4 chronic kidney disease, or unspecified chronic kidney disease; N18.30 Chronic kidney disease, stage 3 unspecified; E78.00 Pure hypercholesterolemia, unspecified; R79.82 Elevated C-reactive protein (CRP); Z79.899 Other long term (current) drug therapy; Z98.890 Other specified postprocedural states; Z90.49 Acquired absence of other specified parts of digestive tract

== ENCOUNTER → 2022-03-04 | Outpatient (CLI) | payer MEDICARE, MEDICAID | END | disposition home or self-care (01) | LOC: MAMMO 02-04 14:00 | PROVIDERS: ATTEND Nurse Practitioner Adult Health | DX: C50.911 Malignant neoplasm of unspecified site of right female breast (principal); N64.59 Other signs and symptoms in breast ==

== ENCOUNTER → 2022-05-26 | Outpatient (CLI) | payer MEDICARE, MEDICAID | END | disposition home or self-care (01) | LOC: CT 04-23 17:00 | PROVIDERS: ATTEND Internal Medicine Hematology & Oncology | DX: K57.30 Diverticulosis of large intestine without perforation or abscess without bleeding (principal); E04.2 Nontoxic multinodular goiter; I70.0 Atherosclerosis of aorta; I25.10 Atherosclerotic heart disease of native coronary artery without angina pectoris; J98.11 Atelectasis; J92.9 Pleural plaque without asbestos; Z90.49 Acquired absence of other specified parts of digestive tract; Z90.710 Acquired absence of both cervix and uterus; M16.0 Bilateral primary osteoarthritis of hip ==

== ENCOUNTER → 2023-07-20 | Outpatient (CLI) | payer MEDICARE, MEDICAID | END | disposition home or self-care (01) | LOC: RAD 07-13 14:00 → CT 07-13 15:00 → RAD 14:00 | PROVIDERS: ATTEND Nurse Practitioner | DX: J43.9 Emphysema, unspecified (principal); M81.0 Age-related osteoporosis without current pathological fracture; C50.911 Malignant neoplasm of unspecified site of right female breast; E27.8 Other specified disorders of adrenal gland; M85.88 Other specified disorders of bone density and structure, other site; E04.2 Nontoxic multinodular goiter; J98.4 Other disorders of lung ==

== ENCOUNTER → 2024-10-10 | Outpatient (CLI) | payer MEDICARE, MEDICAID | END | disposition home or self-care (01) | LOC: CT 01:51 | PROVIDERS: ATTEND Internal Medicine Hematology & Oncology | DX: C50.911 Malignant neoplasm of unspecified site of right female breast (principal); E27.8 Other specified disorders of adrenal gland; I25.10 Atherosclerotic heart disease of native coronary artery without angina pectoris; Z90.11 Acquired absence of right breast and nipple; Z90.49 Acquired absence of other specified parts of digestive tract ==

== ENCOUNTER → 2024-11-16 | Outpatient (CLI) | payer MEDICARE, MEDICAID | END | disposition home or self-care (01) | LOC: CARD 01:30 | PROVIDERS: ATTEND Internal Medicine Hematology & Oncology | DX: I49.1 Atrial premature depolarization (principal); C50.911 Malignant neoplasm of unspecified site of right female breast ==

== ENCOUNTER 2024-11-21 20:45 | Emergency (ER) | payer MEDICARE, MEDICAID ==
[~2024-11-21] VITALS: Ht 167.6 cm; Wt 66.7 kg
[2024-11-21 21:01] VITALS: BP 120/49
== END 2024-11-21 21:25 | disposition home or self-care (01) ==
LOC: ED 20:45
DX: R22.31 Localized swelling, mass and lump, right upper limb (principal); Z48.00 Encounter for change or removal of nonsurgical wound dressing; I10 Essential (primary) hypertension; E78.00 Pure hypercholesterolemia, unspecified; Z90.11 Acquired absence of right breast and nipple; Z90.710 Acquired absence of both cervix and uterus; Z94.9 Transplanted organ and tissue status, unspecified; Z98.890 Other specified postprocedural states; Z90.49 Acquired absence of other specified parts of digestive tract

== ENCOUNTER → 2024-12-12 | Outpatient (CLI) | payer MEDICARE, MEDICAID | END | disposition home or self-care (01) | LOC: CARD 01:34 | PROVIDERS: ATTEND Internal Medicine Hematology & Oncology | DX: C50.911 Malignant neoplasm of unspecified site of right female breast (principal); I44.4 Left anterior fascicular block; I44.30 Unspecified atrioventricular block ==

== ENCOUNTER 2024-12-29 10:18 | Inpatient (IN) | payer MEDICARE ==
[~2024-12-29] VITALS: Ht 165.1 cm; Wt 68.7 kg
[2024-12-29 10:22] VITALS: BP 155/53
[2024-12-29 10:45] LABS: BASO # 0.1 10*3/uL (0.0-0.1); BASO % 0.9 % (0.0-1.0); EOS # 0.2 10*3/uL (0.0-0.4); EOS % 2.6 % (1.0-4.0); HEMATOCRIT 32.9 % (37.0-47.0); MEAN CELL VOLUME 93.7 fl (81.0-99.0); MEAN CORPUSCULAR HGB 29.6 pg (27.0-31.0); MEAN CORPUSCULAR HGB CONC 31.6 g/dl (33.0-37.0); MEAN PLATELET VOLUME 8.4 fl (9.6-12.3); MONO # 1.1 10*3/uL (0.1-1.0); MONO % 13.4 % (3.0-9.0); PLATELET COUNT AUTOMATED 340 10*3/uL (130-400); RED BLOOD COUNT 3.51 10*6/uL (4.10-5.10); RED CELL DISTRI WIDTH 13.5 % (0-14.5); WHITE BLOOD COUNT 8.5 10*3/uL (4.8-10.8)
[2024-12-29 11:08] LABS: POTASSIUM 4.3 mmol/L (3.4-5.1)
[2024-12-29] MEDS ORDERED: SODIUM CHLORIDE 0.9% 1,000 ML IV ONE ×2 (11:20→16:45)
[2024-12-29] MEDS ORDERED: Piperacillin Sodium/Tazobact 50 ML IV ONE (12:55)
[2024-12-29] MEDS ORDERED: Vancomycin Hydrochloride 250 ML IV ONE (12:55)
[2024-12-29] MEDS ORDERED: VITAMIN D350 MC2 PO (15:16)
[2024-12-29] MEDS ORDERED: Ondansetron Hydrochloride 4 MG/2 ML VIAL IV PRN (15:25)
[2024-12-29] MEDS ORDERED: BISACODYL 10 MG SUPP R PRN (15:25)
[2024-12-29] MEDS ORDERED: ACETAMINOPHEN 325 MG TAB PO PRN (15:25)
[2024-12-29] MEDS ORDERED: BISACODYL 5 MG TAB PO PRN (15:25)
[2024-12-29] MEDS ORDERED: MORPHINE Sulfate 2 MG/ML SYR IV PRN (15:25)
[2024-12-29] MEDS ORDERED: ACETAMINOPHEN 650 MG SUPP R PRN (15:25)
[2024-12-29] MEDS ORDERED: Magnesium Hydroxide 30 ML UDC PO PRN (15:25)
[2024-12-29] MEDS ORDERED: TEMAZEPAM 15 MG CAP PO PRN (15:25)
[2024-12-29] MEDS ORDERED: Acetaminophen/Hydrocodone 5 MG/325 MG TABLET PO PRN (15:25)
[2024-12-29 19:34] VITALS: BP 128/49
[2024-12-29] MEDS ORDERED: Piperacillin Sodium/Tazobact 2.25 GM in SODIUM CHLORIDE 0.9% 50 ML IV SCH (20:00)
[2024-12-29] MEDS ORDERED: Phenytoin Sodium, Extended 100 MG CAP PO SCH (22:00)
[2024-12-29] MEDS ORDERED: Metoprolol Tartrate 25 MG TAB PO SCH (22:00)
[2024-12-29 23:11] VITALS: BP 124/50
[2024-12-30 00:17] VITALS: BP 145/66
[2024-12-30 00:26] VITALS: BP 145/66
[2024-12-30 05:08] LABS: BILIRUBIN Negative (Negative); BLOOD Trace-Lysed (Negative); CLARITY Cloudy (Clear); COLOR Yellow (Yellow); GLUCOSE Negative (Negative); KETONE Negative (Negative); LEUKO ESTERASE 3+ (Negative); NITRITE Negative (Negative); UROBILINOGEN 0.2 E.U./dl (0.0-1.0)
[2024-12-30 05:24] LABS: BACTERIA TRACE; EPITHELIAL CELLS 21-30; WBC TNTC wbc/hpf (0-5)
[2024-12-30 06:18] LABS: BASO # 0.1 10*3/uL (0.0-0.1); EOS # 0.4 10*3/uL (0.0-0.4); HEMATOCRIT 30.6 % (37.0-47.0); MEAN CELL VOLUME 94.7 fl (81.0-99.0); MEAN CORPUSCULAR HGB 29.7 pg (27.0-31.0); MEAN CORPUSCULAR HGB CONC 31.4 g/dl (33.0-37.0); MONO # 1.1 10*3/uL (0.1-1.0); MONO % 12.8 % (3.0-9.0); NEUT # 4.6 10*3/uL (2.3-7.9); NEUT % 53.8 % (47.0-73.0); PLATELET COUNT AUTOMATED 332 10*3/uL (130-400); RED BLOOD COUNT 3.23 10*6/uL (4.10-5.10); RED CELL DISTRI WIDTH 13.6 % (0-14.5); WHITE BLOOD COUNT 8.7 10*3/uL (4.8-10.8)
[2024-12-30 06:27] LABS: ACT PARTIAL THROMBO TIME 27.8 SECONDS (20.0-32.1)
[2024-12-30 06:43] LABS: FREE T4 0.98 ng/dl (0.89-1.76); POTASSIUM 4.5 mmol/L (3.4-5.1); TOTAL PROTEIN 6.4 gm/dL (6.0-8.0)
[2024-12-30 07:31] LABS: VITAMIN D, 25-HYDROXY 64.7 ng/mL (30-100)
[2024-12-30 08:00] VITALS: BP 138/56
[2024-12-30] MEDS ORDERED: Sodium Hypochlorite 0.125% (1/4 STRENGTH DAKIN'S) 480 ML SOL T SCH (10:00)
[2024-12-30] MEDS ORDERED: Cholecalciferol 2,000 UNIT TABLET (50 MCG) PO SCH (10:00)
[2024-12-30] MEDS ORDERED: Enoxaparin Sodium 30 MG/0.3 ML SYR SC SCH (10:00)
[2024-12-30 12:00] VITALS: BP 117/52
[2024-12-30] MEDS ORDERED: SODIUM CHLORIDE 0.9% 1,000 ML IV ONE (12:30)
[2024-12-30] MEDS ORDERED: [UNRECOGNIZED DRUG - OTHER] PO (15:09)
[2024-12-30 16:00] VITALS: BP 111/53
[2024-12-30] MEDS ORDERED: MED. FROM HOME 1 EACH EA PO SCH (16:00)
[2024-12-30 20:00] VITALS: BP 126/50
[2024-12-31] VITALS: BP 109/48
[2024-12-31] MEDS ORDERED: Vancomycin Hydrochloride 1,000 MG in SODIUM CHLORIDE 0.9% 250 ML IV SCH
[2024-12-31 06:23] LABS: BASO # 0.1 10*3/uL (0.0-0.1); BASO % 0.7 % (0.0-1.0); EOS # 0.5 10*3/uL (0.0-0.4); EOS % 5.7 % (1.0-4.0); MEAN CELL VOLUME 94.6 fl (81.0-99.0); MEAN CORPUSCULAR HGB 29.3 pg (27.0-31.0); MEAN PLATELET VOLUME 8.9 fl (9.6-12.3); MONO % 12.1 % (3.0-9.0); NEUT # 4.4 10*3/uL (2.3-7.9); NEUT % 53.2 % (47.0-73.0); PLATELET COUNT AUTOMATED 325 10*3/uL (130-400); RED BLOOD COUNT 3.17 10*6/uL (4.10-5.10); RED CELL DISTRI WIDTH 13.6 % (0-14.5); WHITE BLOOD COUNT 8.3 10*3/uL (4.8-10.8)
[2024-12-31 06:49] LABS: POTASSIUM 4.2 mmol/L (3.4-5.1)
[2024-12-31 08:00] VITALS: BP 117/63
[2024-12-31 12:00] VITALS: BP 129/60
[2024-12-31 16:00] VITALS: BP 110/46
[2024-12-31 20:00] VITALS: BP 134/67
[2025-01-01] VITALS: BP 116/53
[2025-01-01 06:12] LABS: BASO # 0.1 10*3/uL (0.0-0.1); BASO % 1.1 % (0.0-1.0); EOS # 0.6 10*3/uL (0.0-0.4); EOS % 6.9 % (1.0-4.0); HEMATOCRIT 30.7 % (37.0-47.0); MEAN CORPUSCULAR HGB 29.7 pg (27.0-31.0); MEAN CORPUSCULAR HGB CONC 31.9 g/dl (33.0-37.0); MEAN PLATELET VOLUME 8.8 fl (9.6-12.3); MONO # 0.9 10*3/uL (0.1-1.0); MONO % 10.3 % (3.0-9.0); NEUT # 4.4 10*3/uL (2.3-7.9); NEUT % 53.1 % (47.0-73.0); PLATELET COUNT AUTOMATED 334 10*3/uL (130-400); RED CELL DISTRI WIDTH 13.5 % (0-14.5); WHITE BLOOD COUNT 8.3 10*3/uL (4.8-10.8)
[2025-01-01 06:32] LABS: POTASSIUM 4.3 mmol/L (3.4-5.1)
[2025-01-01 08:00] VITALS: BP 139/57
[2025-01-01] MEDS ORDERED: Vibra-Tab100 MG PO (11:37)
[2025-01-01 12:00] VITALS: BP 113/74
[2025-01-01] MEDS ORDERED: Vancomycin Hydrochloride 1,000 MG in SODIUM CHLORIDE 0.9% 250 ML IV SCH (12:28)
== END 2025-01-01 14:48 | disposition home or self-care (01) | DRG 602 ==
LOC: ED 10:18 → EDHOLD 14:26 → 4E 14:26
PROVIDERS: Internal Medicine; Student in an Organized Health Care Education/Training Program; ADMIT Family Medicine; ATTEND Family Medicine
DX: L03.111 Cellulitis of right axilla (principal); N17.0 Acute kidney failure with tubular necrosis; N18.4 Chronic kidney disease, stage 4 (severe); G40.909 Epilepsy, unspecified, not intractable, without status epilepticus; E86.0 Dehydration; Z66 Do not resuscitate; E66.3 Overweight; C50.912 Malignant neoplasm of unspecified site of left female breast; E55.9 Vitamin D deficiency, unspecified; I12.9 Hypertensive chronic kidney disease with stage 1 through stage 4 chronic kidney disease, or unspecified chronic kidney disease; D64.9 Anemia, unspecified; R73.9 Hyperglycemia, unspecified; Z90.49 Acquired absence of other specified parts of digestive tract; Z90.710 Acquired absence of both cervix and uterus; Z68.29 Body mass index [BMI] 29.0-29.9, adult

== ENCOUNTER 2025-01-06 02:48 | Emergency (ER) | payer MEDICARE ==
[~2025-01-06] VITALS: Ht 167.6 cm; Wt 74.8 kg
[~2025-01-06 02:48] MED LIST changes: +VITAMIN D350 MC2 PO; +Vibra-Tab100 MG PO; +[UNRECOGNIZED DRUG - OTHER] PO
[2025-01-06 02:52] VITALS: BP 145/63
[2025-01-06 03:48] LABS: BASO # 0.1 10*3/uL (0.0-0.1); BASO % 1.3 % (0.0-1.0); EOS # 0.4 10*3/uL (0.0-0.4); EOS % 4.4 % (1.0-4.0); HEMATOCRIT 32.3 % (37.0-47.0); MEAN CELL VOLUME 93.6 fl (81.0-99.0); MEAN CORPUSCULAR HGB 29.6 pg (27.0-31.0); MEAN CORPUSCULAR HGB CONC 31.6 g/dl (33.0-37.0); MEAN PLATELET VOLUME 8.2 fl (9.6-12.3); MONO # 0.8 10*3/uL (0.1-1.0); MONO % 9.5 % (3.0-9.0); NEUT # 5.3 10*3/uL (2.3-7.9); NEUT % 62.5 % (47.0-73.0); PLATELET COUNT AUTOMATED 389 10*3/uL (130-400); RED BLOOD COUNT 3.45 10*6/uL (4.10-5.10); RED CELL DISTRI WIDTH 13.8 % (0-14.5); WHITE BLOOD COUNT 8.5 10*3/uL (4.8-10.8)
[2025-01-06 04:32] LABS: PHENYTOIN (DILANTIN) 17.3 ug/ml (10-20); POTASSIUM 4.2 mmol/L (3.4-5.1)
[2025-01-06 05:34] LABS: BILIRUBIN Negative (Negative); BLOOD Negative (Negative); CLARITY Clear (Clear); COLOR Yellow (Yellow); GLUCOSE Negative (Negative); KETONE Negative (Negative); LEUKO ESTERASE Negative (Negative); NITRITE Negative (Negative); PH 5.5 (4.5-8.0); SPECIFIC GRAVITY <= 1.005 (1.001-1.030); UROBILINOGEN 0.2 E.U./dl (0.0-1.0)
[2025-01-06 05:47] LABS: WBC 0-2 wbc/hpf (0-5); YEAST TRACE
== END 2025-01-06 06:26 | disposition home or self-care (01) ==
LOC: ED 02:48
PROVIDERS: Emergency Medicine
DX: R25.1 Tremor, unspecified (principal); R42 Dizziness and giddiness; G40.909 Epilepsy, unspecified, not intractable, without status epilepticus; I12.9 Hypertensive chronic kidney disease with stage 1 through stage 4 chronic kidney disease, or unspecified chronic kidney disease; N18.9 Chronic kidney disease, unspecified; Z85.3 Personal history of malignant neoplasm of breast; Z79.899 Other long term (current) drug therapy; N18.4 Chronic kidney disease, stage 4 (severe); Z90.710 Acquired absence of both cervix and uterus; Z90.49 Acquired absence of other specified parts of digestive tract

== ENCOUNTER → 2025-07-04 | Outpatient (CLI) | payer MEDICARE | END | disposition home or self-care (01) | LOC: CT 13:09 | PROVIDERS: ATTEND Internal Medicine Hematology & Oncology | DX: K57.10 Diverticulosis of small intestine without perforation or abscess without bleeding (principal); N28.1 Cyst of kidney, acquired; E04.2 Nontoxic multinodular goiter; I25.10 Atherosclerotic heart disease of native coronary artery without angina pectoris; R91.8 Other nonspecific abnormal finding of lung field; C50.911 Malignant neoplasm of unspecified site of right female breast ==